=== PATIENT | female | born 1955 | race Caucasian/White ===

== ENCOUNTER 2023-11-28 05:10 | Day surgery (SDC) | payer MEDICARE, OTHER ==
[2023-11-23 15:20] LABS: BASOPHILS # (AUTO) 0.1 X10'3 (0-0.2); BASOPHILS % (AUTO) 0.8 % (0-1); EOSINOPHILS # (AUTO) 0.1 X10'3 (0-0.9); EOSINOPHILS % (AUTO) 1.9 % (0-6); LYMPHOCYTES # (AUTO) 2.7 X10'3 (1.1-4.8); LYMPHOCYTES % (AUTO) 34.3 % (21-51); MEAN CORPUSCULAR HEMOGLOBIN 29.7 PG (27.0-31.0); MEAN CORPUSCULAR VOLUME 87.4 FL (78-98); MEAN PLATELET VOLUME 7.4 FL (7.4-10.4); MONOCYTES # (AUTO) 0.5 X10'3 (0-0.9); MONOCYTES % (AUTO) 6.7 % (2-12); NEUTROPHILS # (AUTO) 4.5 X10'3 (1.8-7.7); NEUTROPHILS % (AUTO) 56.3 % (42-75); PRE OP HEMATOCRIT 35.9 % (35.0-45.0); PRE OP HEMOGLOBIN 12.2 g/dL (12.0-16.0); PRE OP PLATELET COUNT 272 X10'3 (140-440); PRE OP WHITE BLOOD COUNT 7.9 10'3 (4.8-10.8); RED BLOOD COUNT 4.11 X10'6 (4.20-5.60); RED CELL DISTRIBUTION WIDTH 15.5 % (11.5-14.5)
[2023-11-23 15:33] LABS: ALBUMIN 3.4 G/DL (3.4-5.0); ALBUMIN/GLOBULIN RATIO 0.9 (1.1-1.5); ALKALINE PHOSPHATASE 51 IU/L (46-116); BLOOD UREA NITROGEN 11 MG/DL (7-18); BUN/CREATININE RATIO 12.1 (10.0-20.0); CALCIUM 8.9 MG/DL (8.5-10.1); CHLORIDE 107 MMOL/L (99-107); CREATININE 0.91 MG/DL (0.40-0.90); PRE OP ALT 19 U/L (30-65); PRE OP ANION GAP 6 (8-16); PRE OP AST 20 U/L (10-37); PRE OP BILIRUB, TOTAL 0.2 MG/DL (0.0-1.0); PRE OP GLUCOSE 108 MG/DL (70-104); PRE OP POTASSIUM 4.1 MMOL/L (3.4-5.1); PRE OP SODIUM 140 MMOL/L (135-145); TOTAL CARBON DIOXIDE 26.8 MMOL/L (24-32); TOTAL PROTEIN 7.2 G/DL (6.4-8.2); eGFR 62 ML/MIN
[2023-11-28] VITALS (8 sets, daily range): BP systolic 112–132; BP diastolic 64–75; PULSE 70–94; RESP 13–16; TEMP 97.5; O2SAT 94–96
[~2023-11-28] VITALS: Ht 165.1 cm; Wt 103.8 kg
[~2023-11-28 05:10] MED LIST: CYCL-1 PO; ESCI5TAB PO; GABA600T13 PO; LISI40TA13 PO; METF-900 PO; OMEP20TA43 PO; PRAV40TA3 PO
[2023-11-28] MEDS: famotidine 20mg tablet PO ONE (05:54)
[2023-11-28] MEDS: cefazolin 2gm/D5W 100mL 100 ML IV ONE (05:55)
[2023-11-28] MEDS: ringers solution, lacted 1,000 ML IV SCH (05:55)
[2023-11-28] MEDS ORDERED: BUPIVAcaine/PF 2.5mg/ml (0.25%) 10ml vial ONE (06:49)
[2023-11-28] MEDS ORDERED: LIDOcaine 2% (20mg/ml) 5ml vial ONE (06:49)
[2023-11-28] MEDS ORDERED: meperidine/PF 25mg/ml syringe IV PRN (07:45)
[2023-11-28] MEDS ORDERED: ringers solution, lacted 1,000 ML IV SCH (07:45)
[2023-11-28] MEDS ORDERED: ondansetron/PF 4mg/2ml inj IV PRN (07:45)
[2023-11-28] MEDS ORDERED: fentaNYL/PF 50MCG/1 ML 2ML syringe IV PRN ×2 (07:45)
[2023-11-28] MEDS ORDERED: proCHLORperazine 10 MG/2 ml inj IV PRN (07:45)
[2023-11-28] MEDS ORDERED: HYDROmorphone/PF 0.2 MG/ML SYRINGE IV PRN ×2 (07:45)
[2023-11-28] MEDS ORDERED: acetaminophen 1,000mg/100ml IV 100 ML IV ONE (07:45)
[2023-11-28] MEDS ORDERED: fentaNYL/PF 50MCG/1 ML 2ML syringe ONE (08:12)
[2023-11-28] MEDS ORDERED: propofol inj 20 ML IV ONE (08:25)
[2023-11-28] MEDS ORDERED: midazolam 1 mg/ML 2ml injection ONE (08:25)
== END 2023-11-28 09:40 | disposition home or self-care (01) ==
LOC: PAS 05:10
PROVIDERS: ATTEND Orthopaedic Surgery Hand Surgery
DX: G56.01 Carpal tunnel syndrome, right upper limb (principal); M65.321 Trigger finger, right index finger; M65.331 Trigger finger, right middle finger; I10 Essential (primary) hypertension; E11.9 Type 2 diabetes mellitus without complications; E78.00 Pure hypercholesterolemia, unspecified; J45.909 Unspecified asthma, uncomplicated; G47.33 Obstructive sleep apnea (adult) (pediatric); K21.9 Gastro-esophageal reflux disease without esophagitis; D64.9 Anemia, unspecified; E66.9 Obesity, unspecified; F17.210 Nicotine dependence, cigarettes, uncomplicated; Z79.84 Long term (current) use of oral hypoglycemic drugs; Z79.899 Other long term (current) drug therapy; Z96.652 Presence of left artificial knee joint; Z98.890 Other specified postprocedural states; Z88.2 Allergy status to sulfonamides; Z88.5 Allergy status to narcotic agent; Z88.8 Allergy status to other drugs, medicaments and biological substances
CPT/HCPCS: 26055; 36415; 64721; 80053; 82948; 85025; 93005; J0690; J2250; J2704; J3010; J3490; J7030; J7120; Z7506; Z7512; A4215; A6449

== ENCOUNTER 2025-02-05 06:16 | Observation (INO) | payer MEDICARE, OTHER ==
[2025-01-28 10:27] LABS: MEAN PLATELET VOLUME 7.1 FL (7.4-10.4); PRE OP HEMATOCRIT 34.6 % (35.0-45.0); PRE OP HEMOGLOBIN 11.3 g/dL (12.0-16.0); PRE OP PLATELET COUNT 321 X10'3 (140-440); PRE OP WHITE BLOOD COUNT 8.2 10'3 (4.8-10.8); RED CELL DISTRIBUTION WIDTH 16.5 % (11.5-14.5)
[2025-01-28 10:42] LABS: CREATININE 0.89 MG/DL (0.40-0.90); PRE OP ALT 18 U/L (30-65); PRE OP ANION GAP 9 (8-16); PRE OP AST 28 U/L (10-37); PRE OP BILIRUB, TOTAL 0.3 MG/DL (0.0-1.0); PRE OP GLUCOSE 130 MG/DL (70-104); PRE OP POTASSIUM 4.5 MMOL/L (3.4-5.1); PRE OP SODIUM 137 MMOL/L (135-145); TOTAL CARBON DIOXIDE 23.7 MMOL/L (24-32); eGFR 63 ML/MIN
[2025-02-05] VITALS (20 sets, daily range): BP systolic 84–147; BP diastolic 50–73; PULSE 78–92; RESP 16–20; TEMP 97.1; O2SAT 89–98
[~2025-02-05] VITALS: Ht 160 cm; Wt 104.3 kg
[~2025-02-05 06:16] MED LIST changes: -CYCL-1 PO; +ESCI-8 PO; -ESCI5TAB PO; +GABA300C PO; -GABA600T13 PO; -LISI40TA13 PO; +LISI40TA20 PO; +MAGNESIUM GLYCINATE PO; +METF-438 PO; -METF-900 PO; +PRAV40TA17 PO; -PRAV40TA3 PO
[2025-02-05] MEDS ORDERED: mineral oil 10ml sterile, topical TP ONE (06:52)
[2025-02-05] MEDS ORDERED: ROPIVAcaine 0.5% (5mg/ml) 30ml vial ONE ×3 (06:52→09:58)
[2025-02-05] MEDS ORDERED: HYDROmorphone/PF 0.2 MG/ML SYRINGE IV PRN ×3 (07:00→08:15)
[2025-02-05] MEDS ORDERED: PCA WASTE DOCUMENTATION 1 MG ML MC SCH (07:00)
[2025-02-05] MEDS ORDERED: magnesium hydroxide 30ml (MOM) UD suspension PO PRN (07:00)
[2025-02-05] MEDS ORDERED: ondansetron/PF 4mg/2ml inj IV PRN ×2 (07:00→08:15)
[2025-02-05] MEDS ORDERED: oxyCODONE IR 5mg (immed. release) tablet PO PRN ×2 (07:00→10:00)
[2025-02-05] MEDS ORDERED: bisacodyl 10mg suppository rectal RC PRN (07:00)
[2025-02-05] MEDS: ceFAZolin 2gm/dext,iso 50mL 50 ML IV ONE (07:05)
[2025-02-05] MEDS: ringers solution, lacted 1,000 ML IV SCH ×2 (07:05→10:13)
[2025-02-05] MEDS: VANCOMYCIN/H2O 1.5g/300mL PB 300 ML IV ONE (07:05)
[2025-02-05] MEDS ORDERED: fentaNYL/PF 50MCG/1 ML 2ML syringe ONE (07:58)
[2025-02-05] MEDS ORDERED: MIDAZolam 1 MG/ML 5ML VIAL ONE (07:58)
[2025-02-05] MEDS ORDERED: enalaprilat 1.25mg/ml 2ml vial IV PRN (08:15)
[2025-02-05] MEDS ORDERED: labetalol 20mg/4ml (5mg/ml) syringe IV PRN (08:15)
[2025-02-05] MEDS ORDERED: fentaNYL/PF 50MCG/1 ML 2ML syringe IV PRN ×2 (08:15)
[2025-02-05] MEDS ORDERED: propofol inj 20 ML IV ONE (08:22)
[2025-02-05] MEDS ORDERED: LIDOcaine 1%/PF 5ML 10 MG/ML VIAL ONE (08:23)
[2025-02-05] MEDS ORDERED: ePHEDrine 50MG/ML INJ. ONE (08:34)
[2025-02-05] MEDS ORDERED: albumin (Human) 5% 250ml 250 ML IV ONE (08:39)
--- NOTE | 2025-02-05 09:43 | ANESTHESIA RECORDS ---
Nerve Block Providers to CC ~ Diagnosis: Nerve Block requested by: GERARD HERNANDEZ MD Neuraxial/Peripheral Nerve Block requested for Post-operative analgesia by Physician above DIAGNOSIS: Post-operative pain. (Body Area) Shoulder: [ ] Arm: [ ] Hand: [ ] Hip: [ ] Knee: [ ] Ankle: [ ] Foot: [ ] Leg: [ ] Abdomen: [ ] Other: [ ] Post-operative pain expected to be/is inadequately managed by oral or IV medicines. Regional anesthetic expected to facilitate rehabilitation and/or discharge from facility. Other:[ ] Procedure Performed: Femoral / Saphenous: Right Time out Done?: Yes Time of Time out: 10:02 Procedure Details: PROCEDURE DETAILS: Risks, benefits and alternatives explained Informed consent obtained, and patient wishes to proceed Conscious sedation with indicated monitors Patient positioned, pertinent anatomy defined, sterile technique used Needle used: [ ] 3 1/8 inch Stimuplex Ultra 22ga [x ] 4 inch Stimuplex Ultra 20ga [ ] 6 inch Stimuplex Ultra 20ga [ ] 6 inch, Quikbloc over the needle catheter set 20ga [ ] 4 inch Quikbloc over the needle catheter set 20ga [ ]Other: [ ] Loss of twitch @ [ N/A ]mA [x ] Single Injection [ ] Catheter Ultrasound Guidance Used: [x] Yes [ ] No Attempts:[ once ] Medicines injected: [x ]Clonidine Amt:[ 80 mcgs ] [x ]Dexamethasone Amt:[ 3 mgs ] [ x ]Ropivacaine Amt:[ 0.5% 30 cc ] [ ]Bupivacaine Amt:[ ] [ ]Lidocaine Amt:[ ] [ ]Exparel 1.33%:[ ] [ ]Epinephrine Amt[ ] [ ]Other: [ ] Intermittent aspiration during local anesthetic administration No symptoms of intraneural or intravenous injection Patient tolerated procedure well Comments Rt Adductor Canal blk Procedure done after surgery under Spinal anesthesia. Pt supine with Rt leg rotated to Rt slightly. Easy visualization of Adductor Canal with ultra sound anterolateral to Femoral artery at the junction of upper and middle third of thigh. Able to see the tip of the needle and injected local anesthetic with the ultrasound. 5 cc of local anesthetic is injected into nerve to Vastus medialis and few cc is injected into ant femoral cutaneous nerves. No Pain or discomfort during injection. ZE WILLIS MD Feb 05, 2025 09:43
--- NOTE | 2025-02-05 10:17 | OPERATIVE REPORT ---
Operative Report Operative Report OPERATIVE REPORT [facility] [address] [place] [address] Date of service: February 05, 2025 PREOPERATIVE DIAGNOSIS M17..16 Primary osteoarthritis of right knee POSTOPERATIVE DIAGNOSIS M17..16 Primary osteoarthritis of right knee Operation Performed 79288 Total Knee Arthroplasty with this [place]: [place] [address] Computer Assisted Navigation Musculoskeletal - Imageless 25443 Remote therapeutic monitoring; device supply with scheduled recordings every 30 days. MotionProcedure: Computer-assisted, robotically-assisted, right total knee arthroplasty. Surgeon: Dr. Dav Palma Fire Sprinkler Apparatus Inspector: Moira Anderson PA-C Anesthesiologist: Dr. Longo Anesthesia: Spinal anesthetic Indications: 69-year-old female who has chronic osteoarthritis of the right knee with severe pain and limitation of activities despite extensive non- operative management. This patient has had extensive conservative treatment of knee joint arthritis, including rest, external joint support, anti-inflammatory medications, physical therapy, and corticosteroid injection. Physical therapy has been provided, along with a home exercise program prior to making the decision to proceed with surgical treatment. This therapeutic intervention did not provide any substantial relief of symptoms or improvement in function. The patient has been utilizing a cane, set of crutches, or walker, for more than 3 months prior to deciding to proceed with surgery. These interventions have not provided sufficient relief of pain to allow improvement in function. The patient has utilized non-steroidal anti-inflammatory medications for relief of pain over an extended period of time (more than 2 months), and has not experienced sufficient improvement in symptoms. Despite these treatments, this patient has continued difficulties with pain and limited function. They are unable to walk long distances, do vigorous activities, sit or sleep comfortably. Total knee replacement is the next reasonable step in terms of treatment. Indications for assistant county attorney surgeon: A second set of skilled hands with specific orthopedic knowledge of the surgical procedure and orthopedic surgical techniques was necessary to accomplish this operation successfully, and with the least amount of morbidity for the patient. This facilitated operative exposure, manipulation and handling of tissues, placement of any implants, and accomplishment of wound closure. Findings: There was indeed a very severely arthritic knee, with loss of cartilage, exposed bone, and marginal osteophytes. The medial compartment was particularly bad. A 7 degree varus deformity and 9 degree flexion contracture were measured preoperatively. Post operative alignment was 1 degree extension, and varus. Complications: None Estimated Blood Loss: 200 mL Implants: A Fiorella Persona CR total knee system was utilized with a size 7 right femoral component, a size F right tibial component with a smart stem, and a 32 mm patellar component. A 12 mm medial congruent right tibial insert was utilized. The VivaSmart robotically assisted total knee arthroplasty system and computer was utilized. Procedure: The risks, benefits, expected results, and possible complications of the planned procedure had been explained to the patient and informed consent obtained. The patient was taken to the operating room and underwent a spinal anesthetic. The patient was placed in the supine position on the operating table, and the right leg was prepped and draped in the usual fashion. A timeout was taken prior to surgery, confirming patient identification, operative side operative site, planned procedure, administration of pre-operative antibiotics, site marking, and presence of all necessary implants and instruments, x-rays and equipment. A standard anterior, slightly lateral approach was performed with a medial parapatellar arthrotomy, and a VMO split. Time was then spent removing excessive synovial tissue and exposing the medial and lateral gutters, as well as moving the anterior sections of the residual menisci. The patella was mobilized to be able to be retracted laterally. This gave exposure of the anterior aspect of the knee. Attention was then directed to the patella. An oscillating saw was utilized to make a flat cut in a freehand manner, removing approximately 9 mm of thickness. The patella was then sized and drilled for the appropriate size patella implant. Infrared arrays were then placed on the distal shaft of the femur anteriorly, and the proximal tibia medially. Utilizing the VivaSmart computer system, the hip, knee, and ankle were landmarked in usual fashion. The initial alignment measurements were then taken confirming the above listed deformity. Surgical planning was then carried out on the computer, confirming alignment of components, sizing, and gap balancing. Appropriate soft tissue releases were performed. The assistant county attorney surgeon was instrumental in maintaining exposure and tissue management and protecting vital structures. The robot was then utilized to perform all distal femoral cuts. The femur was prepared in 4 degrees of flexion and neutral coronal alignment. The robot was then utilized to cut the proximal tibia in 5 degrees of flexion and neutral coronal alignment. The computer was then utilized to check longitudinal alignment and soft tissue balance, and this confirmed excellent alignment. Next the dynamic balancing block was utilized to check and adjust soft tissue balancing. Finally, attention was directed to the proximal tibia. The implant was sized and properly rotated, the central drill, and the fin punch performed. Final check of alignment and balancing was then carried out, as well as final removal and cleaning up of soft tissue such as meniscal remnants and osteophytes. A tourniquet was inflated to 300 mmHg after exsanguination of the leg with an Esmarch. Cement was then mixed; 2 batches were utilized, mixed together, for the tibia, the femur and the patella. The cut surface of the tibia was thoroughly lavaged with the pulsating lavage and then dried. The tibia was impacted with the mallet, seating it quite nicely in its proper rotational alignment. Excess cement was removed from around the margins. The femoral cuts were cleaned with a pulsating lavage and then dried with the lap sponges, and the femur was impacted into position with a mallet. The patella was held firmly in place with a clamp. Excess cement was removed around the margins of the components as the cement cured. Pressure was held on the femoral component and tibia by placing a spacer and bringing the leg to full extension and applying axial and hyperextension force. Upon complete hardening of all cement, the knee was inspected and excess cement removed. We lavaged the knee to wash out any debris and checked to make sure we had no impinging cement. The trial spacer was replaced and overall alignment checked with computer, ensuring we had full extension of the knee, and appropriate medial and lateral soft tissue balance, as well as flexion and extension balance. The tourniquet was deflated and hemostasis obtained with electrocautery. The wound was irrigated thoroughly one more time and then dried with lap sponges. The final tibial spacer was impacted and locked into the locking mechanism without difficulty. After final irrigation and suction of excess fluid, the knee was infiltrated with our intraoperative local anaesthetic mixture for postoperative pain control. Vistaseal was utilized for hemostasis. The tibial and femoral navigation pins and arrays were removed. The tourniquet was then deflated, tourniquet time was 15 minutes. The wound was then closed in layers including retinacular closure, subcutaneous tissue, and skin. A sterile dressing was applied and the patient was returned to the recovery room in satisfactory condition. In the recovery area the remote monitoring station was dispensed to the patient and family. Instructions were given for its usage and cupola charger insulation once the patient got home. We also confirmed the patient had installed the [employer] mobility software, and we ensured that the patient was enrolled in appropriate software platform from our end. Remote monitoring was initiated at the preoperative appointment and the devices used for remote monitoring implanted and dispensed today. Electronically Signed by: Dav Palma MD Doctor, Orthopedic Surgery Signed on: 02/05/2025 10:15 AM DAV PALMA MD Feb 05, 2025 10:17
[2025-02-05] MEDS: fentaNYL/PF 50MCG/1 ML 2ML syringe IV ONE (10:24)
[2025-02-05] MEDS: ESCITALOPRAM 10 mg tablet 10 MG TABLET PO SCH (10:24)
[2025-02-05] MEDS: pantoprazole 40mg Tablet.DR PO SCH (10:24)
[2025-02-05] MEDS: acetaminophen 1,000mg/100ml IV 100 ML IV PRN (10:45)
[2025-02-05] MEDS: potassium cl 20mEq in 1/2 NS 1,000 ML IV SCH (10:45)
[2025-02-05] MEDS: ketorolac trometh 30MG/ML vial 30 MG/ML VIAL IV ONE (10:45)
[2025-02-05] MEDS ORDERED: ceFAZolin/D5W- 1GM premix 50 ML IV SCH ×2 (16:00→18:00)
--- NOTE | 2025-02-05 16:27 | DISCHARGE SUMMARY ---
Discharge Summary Ortho [facility] ~ Discharge Summary *Problems/Diagnosis: (1) Osteoarthritis of right knee Status: Chronic Admission Diagnosis: Osteoarthritis Discharge Diagnosis\Comment: SAME Operations\Procedures RTKA Consultants: none Complications: none Condition on DC: Stable Discharge Summary: Patient underwent R TKA. They did well after surgery.Dischargd to home same day. Recheck in 2 weeks Total Time Spent on D/C: Up to 30 Minutes Medications Home Meds: Home Medications Active Reported Metformin HCl 1,000 Mg Tablet 1 Tab PO BID Neurontin (Gabapentin) 300 Mg Capsule 2 Cap PO BID Escitalopram Oxalate 10 Mg Tablet 30 Mg PO DAILY [Magnesium Glycinate] 240 PO BID Pravastatin Sodium 40 Mg Tablet 1 Tab PO HS 30 Days Omeprazole 20 Mg Tablet.dr 20 Mg PO BID Lisinopril* (Lisinopril) 40 Mg Tablet 1 Tab PO DAILY Problem Qualifiers (1) Osteoarthritis of right knee: Qualified Codes: M17.11 - Unilateral primary osteoarthritis, right knee GERARD HERNANDEZ MD Feb 05, 2025 16:27
[2025-02-05] MEDS ORDERED: vancomycin/NS 1 GM ADD-VANTAGE 250 ML IV SCH ×2 (20:00→22:00)
== END 2025-02-05 19:05 | disposition home or self-care (01) ==
LOC: PAS 06:16 → PAS IN 10:04 → ORTHO 4S 12:00
PROVIDERS: ADMIT Orthopaedic Surgery; ATTEND Orthopaedic Surgery
DX: M17.11 Unilateral primary osteoarthritis, right knee (principal); M25.561 Pain in right knee; I10 Essential (primary) hypertension; E11.9 Type 2 diabetes mellitus without complications; F32.9 Major depressive disorder, single episode, unspecified; K21.9 Gastro-esophageal reflux disease without esophagitis; E78.5 Hyperlipidemia, unspecified; E66.9 Obesity, unspecified; D64.9 Anemia, unspecified; Z68.41 Body mass index [BMI] 40.0-44.9, adult; Z79.899 Other long term (current) drug therapy; Z98.890 Other specified postprocedural states
CPT/HCPCS: 20985; 27447; 36415; 80053; 82948; 85025; 96365; C1713; C1776; G0378; J0131; J1885; J2250; J2704; J2795; J3010; J3375; J3480; J3490; J7120; P9045; A4215; A4615; A6253; A6449; A7000; C9250